=== PATIENT | female | born 2000 | race Caucasian/White ===

== ENCOUNTER 2024-01-30 08:59 | Inpatient (IN) | payer MEDICAID, SELFPAY ==
[2024-01-30] VITALS (21 sets, daily range): BP systolic 100–140; BP diastolic 57–88; PULSE 78–102; TEMP 36.7
--- NOTE | 2024-01-30 09:43 | US_ITS ---
[address] [address] Patient Name: CODI CORONADO MRN: [id number] date: 2000 Sex: F Assigned Patient Location: [facility] Current Patient Location: [facility] Accession/Order Number: [id number] Exam Date: 01/30/2024 09:50 Report Date: 01/30/2024 10:12 At the request of: EDA MCDONALD Procedure: US OB limited EXAM: US OB limited HISTORY: unstable lie ; confirm position COMPARISON: None. TECHNIQUE: Transabdominal ultrasound. FINDINGS: PRESENTATION: Cephalic with longitudinal lie HEART RATE: 138 bpm Gestational age: 39 weeks 1 day JAKE: 02/05/2024: US/US OB limited IMPRESSION: 1. Single live intrauterine . 2. Cephalic presentation with longitudinal lie. Electronically authenticated by: ELMER BANKS Date: 01/30/2024 10:12
[2024-01-30 10:21] LABS: Basophils Percent Auto 0.5 % (0.2-2.0); Eosinophils Absolute Auto 0.2 10^3/uL (0.0-0.7); Eosinophils Percent Auto 2.8 % (0.9-7.0); Hematocrit 28.2 % (36.0-48.0); Hemoglobin 8.8 g/dL (12.0-16.0); Immature Granulocytes Pct Auto 1.2 % (0.0-0.5); Lymphocytes Absolute Auto 1.7 10^3/uL (1.2-3.8); Lymphocytes Percent Auto 20.1 % (20.5-60.0); Mean Corpuscular HGB Conc 31.2 g/dL (29.9-35.2); Mean Corpuscular Hemoglobin 22.9 pg (26.7-34.0); Mean Corpuscular Volume 73.2 fL (81.0-99.0); Mean Platelet Volume 9.6 fL (9.5-13.5); Monocytes Absolute Auto 0.9 10^3/uL (0.3-0.8); Monocytes Percent Auto 10.5 % (1.7-12.0); Neutrophils Absolute Auto 5.5 10^3/uL (1.4-6.5); Neutrophils Percent Auto 64.9 % (43.0-75.0); Platelet Count 282 10^3/uL (150-450); Red Blood Count 3.85 10^6/uL (4.20-5.40); Red Cell Distribution Width 16.4 % (11.0-15.0); White Blood Count 8.5 10^3/uL (4.0-11.0)
[2024-01-30 10:24] LABS: Bilirubin Urine NEGATIVE (NEGATIVE); Blood Urine NEGATIVE (NEGATIVE); Clarity Urine CLEAR (CLEAR); Color Urine LT. YELLOW (YELLOW); Glucose Urine UA NEGATIVE (NEGATIVE); Ketones Urine NEGATIVE (NEGATIVE); Leukocyte Esterase Urine SMALL (NEGATIVE); Nitrite Urine NEGATIVE (NEGATIVE); Protein Urine NEGATIVE (NEG/TRACE); Urobilinogen Urine 0.2 EU/dL (0.2-1.0)
[2024-01-30 10:31] LABS: Amphetamine Screen Urine NEGATIVE (NEGATIVE); Barbiturates Screen Urine NEGATIVE (NEGATIVE); Benzodiazepines Screen Urine NEGATIVE (NEGATIVE); Buprenorphine Screen Urine NEGATIVE (NEGATIVE); Cannabinoid Screen Urine NEGATIVE (NEGATIVE); Cocaine Screen Urine NEGATIVE (NEGATIVE); Methadone Screen Urine NEGATIVE (NEGATIVE); Methamphetamines Screen Urine NEGATIVE (NEGATIVE); Opiate Screen Urine NEGATIVE (NEGATIVE); Oxycodone Screen Urine NEGATIVE (NEGATIVE); Phencyclidine Screen Urine NEGATIVE (NEGATIVE); Tricyclic Antidepressant Urine NEGATIVE (NEGATIVE)
[2024-01-30 10:34] LABS: Bacteria Urine SMALL #/HPF (NONE SEEN); Mucus Urine NONE SEEN (NONE SEEN); Squamous Epithelial Cell Urine MANY #/LPF (NONE/RARE)
[2024-01-30 10:35] LABS: Cast Seen? NONE SEEN #/LPF (NONE SEEN); Crystals Seen? None Seen #/HPF (None Seen); Transitional Epi Cells Urine RARE #/LPF (NONE SEEN)
[2024-01-30 10:36] LABS: Urine Culture Indicated YES
--- NOTE | 2024-01-30 11:29 | P.OBHP_ITS ---
OB - H&P: HPI History of Present Illness Chief complaint: : 2 Para: 1 Gestational age based on last menstrual period: 39.2 History of Present Dating criteria: LMP confirmed by 1st trimester US care: good care Ultrasounds: normal mid trimester US complications comment: dizziness, passing out, weight loss, MFM and cardiology Medical complications OB: none Labs Blood type: O (+) positive Rubella: nonimmune RPR/VDLR: nonreactive GBS status: negative HBsAG: negative Review of Systems ROS Status of ROS: 10 or more systems reviewed and unremarkable except as noted in history and below Exam Constitutional Vital Signs, click to edit/add: Last Vital Signs Pulse 84 01/30/24 11:07 BP 114/66 01/30/24 11:07 Documenting provider has reviewed patient's vital signs: yes Common normals: no apparent distress Exam limitations: altered mental status General appearance: cooperative Orientation/consciousness: Yes awake, Yes oriented to person, Yes oriented to place and Yes oriented to time HENMT Head and scalp: normal to inspection Face and sinus: normal facial exam Nose: external nose normal Eye Common normals: EOMs intact bilaterally General eye: normal appearance of both eyes Neck & C-Spine Common normals: full ROM General: normal visual inspection Lymph Lymphatic: no lymphadenopathy noted Chest Common normals: inspection of chest normal Respiratory Common normals: normal respiratory effort Effort & inspection: able to speak in complete sentences Cardio Common normals: regular rate and regular rhythm Rate: regular rate GI Common normals: Normal to inspection, nondistended, normoactive bowel sounds present Common normals: external appearance normal Extremity Common normals: normal to inspection and full ROM Neuro Common normals: oriented x3 Sensorium/orientation: awake, alert, oriented to person, oriented to place and oriented to time Psych Common normals: mental status grossly normal and thought process normal Attitude: calm Speech: normal speech Thought process: normal thought process Results Labs Labs: Short CBC 01/30/24 Range/Units 09:30 WBC 8.5 (4.0-11.0) 10^3/uL Hgb 8.8 L (12.0-16.0) g/dL Hct 28.2 L (36.0-48.0) % Plt Count 282 (150-450) 10^3/uL Urine 01/30/24 Range/Units 09:15 Urine Color Lt. yellow (YELLOW) Urine Clarity Clear (CLEAR) Urine pH 7.0 (5.0-9.0) Ur Specific [place] 1.010 (1.005-1.025) Urine Protein Negative (NEG/TRACE) mg/dL Urine Glucose (UA) Negative (NEGATIVE) mg/dL OB - A/P Assessment and Plan (1) Term : Plan term
[2024-01-30] MEDS: LACTATED RINGER'S SOLUTION 1,000 ML 1000 ML IV (12:24)
[2024-01-30] MEDS: OXYTOCIN/0.9 % SODIUM CHLORIDE 10 UNITS/500 ML PLAST..BAG 6 UNIT IV (12:24)
--- NOTE | 2024-01-30 17:06 | P.OBPN_ITS ---
Pain Control Pain control: tolerating well Pelvic Exam Comments: external os 1.5 internal os closed, vertex by bedside hand held US, soft, 50 percent, -2 Contractions Monitor mode: External Contraction frequency: 2 Contraction duration: 1 (on 18 miu of pitocin, contractions strong every two to three min) Contraction pattern: Regular Contraction phase: Benny (uterus hard) Contraction intensity: Strong Infant station: -2 Amniotic membrane status: Intact status: Category I Assessment and Plan Pitocin rate (mU/min): 18 Assessment: induction ongoing Plan: continuous present management Comments: informed nurse cleaner laboratory equipment Shaye of status. she decided to stop pitocin. will feed dinner, once contractions stop, will place cervidil. explained to patient. all questions answered. stated agreement and understanding.
[2024-01-30] MEDS: DINOPROSTONE 10 MG VAG INSERT.ER VAGINAL (18:30)
[2024-01-31] VITALS (92 sets, daily range): BP systolic 95–136; BP diastolic 52–79; PULSE 72–102; TEMP 36.4–37.1
--- NOTE | 2024-01-31 06:25 | P.OBPN_ITS ---
Pain Control Pain control: tolerating well Pelvic Exam Dilation (cm): 3 Effacement (%): 50 Contractions Monitor mode: External Contraction frequency: 0 Contraction pattern: Absent station: -1 Amniotic membrane status: Intact status: Category I Comments: head vertex, applied to cervix, cervidil now removed, heart remains CAT I, will let patient clean up, walk around if desired, have breakfast before starting pitocin. per nurse teleprinter installer, instructed not to AROM at this time Assessment and Plan Pitocin rate (mU/min): 0 Assessment: other (will be starting low dose pitocin after patient has breakfast and gets cleaned up) Plan: begin patient augmentation
--- NOTE | 2024-01-31 11:13 | PM.EN ---
Event Note Event Note: to unit for assessment. Patient is sleeping quietly with easy respirations.
[2024-01-31] MEDS: OXYTOCIN/0.9 % SODIUM CHLORIDE 10 UNITS/500 ML PLAST..BAG 6 UNIT IV (13:10)
[2024-01-31] MEDS: LACTATED RINGER'S SOLUTION 1,000 ML 999 ML IV (13:11)
[2024-01-31] MEDS: ROPIVACAINE HCL/PF 400 MG/200 ML PREMIX 6 MG EPIDURAL (13:27)
[2024-01-31] MEDS: LACTATED RINGER'S SOLUTION 1,000 ML 125 ML IV ×2 (16:01→23:17)
[2024-02-01] VITALS (40 sets, daily range): BP systolic 97–143; BP diastolic 55–86; PULSE 69–106; TEMP 36.2–36.9; O2SAT 98–100
--- NOTE | 2024-02-01 01:28 | PM.EN ---
Event Note Event Note: assessment obtained. patient has increased anterior cervical edema, despite position changes. Maternal exhaustion, cervical exam is unchanged for the past 4 hours. 8/-2 with caput. Patient has had pain the last 2-3 hours and anesthesia has redosed twice. No pain relief, maternal exhaustion and failure to descend noted. After discussion with patient she is in agreement for a primary low transverse section at this time. Baby was in footling breech presentation 01-29-24 and then converted to cephalic presentation on 01-30-24 and induction was began. Category B section called and Dr Marks notified. Surgical team called in. Consent obtained.
[2024-02-01] MEDS: METOCLOPRAMIDE HCL 10 MG/2 ML VIAL IVP (01:35)
[2024-02-01] MEDS: CEFAZOLIN SODIUM/DEXTROSE,ISO 2 GM/50 ML PIGGYBACK IV (01:35)
[2024-02-01] MEDS: FAMOTIDINE/PF 20 MG/2 ML VIAL IV (01:35)
[2024-02-01] MEDS: CITRIC ACID/SODIUM CITRATE 30 ML SOLUTION ORACIT SHOHL'S SOLN PO (01:35)
[2024-02-01] MEDS: LACTATED RINGER'S SOLUTION 1,000 ML 50 ML IV (02:24)
--- NOTE | 2024-02-01 02:57 | PM.EN ---
Event Note Event Note: !st Assist Note: I first assisted Dr Marks as directed. I independently closed the skin incision with 3-0 vicryl without difficulty. Hemostasis noted at the completion of the case. Patient tolerated the procedure well.
[2024-02-01] MEDS: BUPIVACAINE LIPOSOME/PF 266 MG/13.3 ML VIAL INJ (03:00)
[2024-02-01] MEDS: OXYTOCIN/0.9 % SODIUM CHLORIDE 20 UNITS/1,000 ML PLAST..BAG 125 UNIT IV (03:30)
[2024-02-01] MEDS: LACTATED RINGER'S SOLUTION 1,000 ML 125 ML IV (08:29)
[2024-02-01] MEDS: CEFAZOLIN SODIUM/DEXTROSE,ISO 1 GM/50 ML PREMIX IV (08:30)
[2024-02-01] MEDS: KETOROLAC TROMETHAMINE 30 MG/ML VIAL IVP ×3 (08:30→20:12)
[2024-02-01] MEDS: ONDANSETRON PF 4 MG/2 ML VIAL IV (08:45)
[2024-02-01] MEDS: NALOXONE HCL 0.4 MG/ML VIAL IV ×2 (09:25→18:18)
--- NOTE | 2024-02-01 10:09 | P.OBPRC_ITS ---
Procedure Pre-op/Post-op diagnoses: Pre-Op/Post-Op Diagnoses Operation Date: 02/01/24 02:00 <No data on this case meets the specified criteria> Procedure: Procedures Operation Date: 02/01/24 02:00 Actual Procedure Side Surgeon p Not Applicable Andressa Marks MD Certified Orthotist/Pedorthist: EDA MCDONALD Estimated blood loss (mL): 300 Disposition: floor Anesthesia type: Epidural Complications: NONE Narrative: WAS CALLED BY AASHISH MCDONALD NURSE SHOCK ABSORPTION FLOOR LAYER THAT SHE WANTED TO CALL [facility] FOR FTD FOR OVER 4 HOURS. HEART RATE REMAINED REASSURRING HOWEVER MOM WAS NOT COPING WELL WITH THE PAIN OR LACK OF PROGRESS OF LABOR. THE OR TEAM WAS CALLED IN. THE INDICATION FOR CS WAS EXPLAINED TO PATIENT AND FAMILY BY AASHISH MCDONALD AND CONSENT SIGNED. THE PATIENT WAS BROUGHT TO THE OPERATING ROOM AND POSITIONED ON THE OPERATING TABLE IN A SUPINE POSITION WITH A WEDGE UNDER THE RIGHT FLANK. ANESTHETIC MONITORS WERE APPLIED. THE EPIDURAL HAD BEEN DOSED PREVIOUSLY FOR SURGERY. FHT WERE ASSESS AND WNL. THE PATIENT WAS PREPPED AND DRAPED. TIME OUT WAS PERFORMED. THE ANESTHETIC LEVEL WAS ASSESSED AND ADEQUATE. A PFANNENSTIEL SKIN INCISION WAS MADE TWO FINGER BRETHS ABOVE THE PUBIC SYMPHYSIS BONE. THIS INCISION WAS CARRIED DONE TO THE LEVEL OF THE FASCIA. THE FASCIA WAS NICKED IN THE MIDLINE AND THIS INCISION WAS EXTENDED LATERALLY TO THE FULL EXTENT OF THE SKIN INCISION. THE SUPERIOR AND INFERIOR BORDERS OF THE RECTUS ABDOMINUS MUSCLE WERE DISSECTED FROM THE FASCIA USING CAUTERY ON CUTTING MODE AND BLUNT DISSECTION. THE BLADDER FLAP WAS DEVELLPED AND THE BLADDER BLADE WAS POSITIONED. THE JONAS WAS INCISED TWO INCHES AND THIS OPENNING WAS MANUALLY WIDENED. THE BABY WAS FACE UP. THE RIGHT HAND OF THE SURGEON WAS PLACED AROUND THE VERTEX AND WITH GENTLE FUNDLE PRESSURE THE HEAD WAS DELIVERED WITHOUT NUCHAL CORD. THE SHOULDERS AND TORSO WERE THEN DELIVERED. THE INFANT BOY HAD GOOD TONE AND COLOR BUT DID NOT CRY. THE UMBILICAL CORD WAS CLAMPED AND CUT AND THE INFANT WAS HANDED TO THE NPR TEAM FOR ASSESSMENT AND CARE. CORD BLOOD WAS OBTAINED. THE PLACENTA WAS MANUALLY REMOVED INTACT AND NOT SENT TO PATHOLOGY. THE UTERUS WAS EXTERIORIZED AND THE HYSTEROTOMY WAS REPAIRED IN A SINGLE LAYER WITH A CONTINUOUS LOCKING STITCH. EXCELLENT HEMOSTASIS WAS ACHIEVED. BLOOD WAS EVACUATED FROM THE POSTERIOR AND ANTERIOR CULDESAC AND LATERAL GUTTERS. THE UTERUS WAS RETURNED TO ITS NORMAL ANATOMICAL POSITION AND RECHECKED. HEMOSTASIS WAS EXCELLENT. THE FIRST SPONGE INSTRUMENT AND NEEDLE COUNT WAS CORRECT. THE FASCIA WAS CLOSED WITH O VICRYL WITH A RUNNING STITCH. THE SUBCUTANEOUS FAT DID NOT REQUIRE CLOSURE MINIMAL. THE SKIN WAS CLOSED WITH A SUBCUTICULAR STITCH USING 4-0 VICRYL. THE FINAL COUNT WAS CORRECT. THE INCISION WAS COVERED WITH A STERILE DRESSING. THE PATIENT WAS TRANSPORTED BACK TO HER ROOM ON MATERNITY IN HEMODYNAMICALLY STABLE CONDITION.
[2024-02-01] MEDS: ACETAMINOPHEN 500 MG TABLET 1000 MG PO ×2 (12:01→20:00)
[2024-02-02] VITALS (52 sets, daily range): BP systolic 98–130; BP diastolic 61–80; PULSE 85–104; TEMP 36.2–37.1; O2SAT 96–100
[2024-02-02] MEDS: IBUPROFEN 400 MG TABLET 800 MG PO ×3 (06:07→19:47)
[2024-02-02] MEDS: ACETAMINOPHEN 500 MG TABLET 1000 MG PO ×3 (06:07→23:20)
[2024-02-02 06:10] LABS: Basophils Percent Auto 0.2 % (0.2-2.0); Eosinophils Absolute Auto 0.2 10^3/uL (0.0-0.7); Eosinophils Percent Auto 1.2 % (0.9-7.0); Immature Granulocytes Abs Auto 0.16 10^3/uL (0.00-0.03); Immature Granulocytes Pct Auto 1.3 % (0.0-0.5); Lymphocytes Percent Auto 15.3 % (20.5-60.0); Mean Corpuscular HGB Conc 31.4 g/dL (29.9-35.2); Mean Corpuscular Hemoglobin 23.4 pg (26.7-34.0); Mean Corpuscular Volume 74.5 fL (81.0-99.0); Mean Platelet Volume 9.5 fL (9.5-13.5); Monocytes Absolute Auto 1.2 10^3/uL (0.3-0.8); Monocytes Percent Auto 9.6 % (1.7-12.0); Neutrophils Absolute Auto 9.2 10^3/uL (1.4-6.5); Neutrophils Percent Auto 72.4 % (43.0-75.0); Platelet Count 203 10^3/uL (150-450); Red Blood Count 2.35 10^6/uL (4.20-5.40); Red Cell Distribution Width 16.8 % (11.0-15.0); White Blood Count 12.7 10^3/uL (4.0-11.0)
[2024-02-02] MEDS: ENOXAPARIN SODIUM 40 MG/0.4 ML SYRINGE SUBQ (06:34)
[2024-02-02 06:47] LABS: Hematocrit 17.5 % (36.0-48.0); Hemoglobin 5.5 g/dL (12.0-16.0)
[2024-02-02] MEDS: 0.9 % SODIUM CHLORIDE 1,000 ML 125 ML IV (07:50)
[2024-02-02] MEDS: DOCUSATE SODIUM 100 MG CAPSULE PO ×2 (08:46→22:07)
--- NOTE | 2024-02-02 10:46 | P.OBPN_ITS ---
OB - PN: Subj Subjective Patient comments: no complaints, pain well controlled, tolerating diet and flatus present [place] infant status: doing well [place] feeding status: exclusively Exam Constitutional Vital Signs, click to edit/add: Last Vital Signs Temp 97.5 F L 02/02/24 10:44 Pulse 88 02/02/24 10:44 Resp 16 02/02/24 10:44 BP 109/65 02/02/24 10:44 Pulse Ox 100 02/02/24 10:44 O2 Del Method Room Air 02/02/24 10:44 Documenting provider has reviewed patient's vital signs: yes Common normals: no apparent distress, oriented x3, healthy appearing and alert HENMT Common normals: normocephalic and head/scalp atraumatic Eye Common normals: PERRL Pupil: accommodation reflex normal Neck & C-Spine Common normals: full ROM and supple Respiratory Common normals: normal respiratory effort Auscultation: clear to auscultation bilaterally Cardio Common normals: regular rate and regular rhythm GI Common normals: Normal to inspection, nondistended, normoactive bowel sounds present and soft to palpation Common normals: no CVA tenderness Back & Pelvis Common normals: no thoracic nor lumbar tenderness Extremity Common normals: normal to inspection, full ROM and no calf tenderness Neuro Common normals: oriented x3, CN's II-XII intact bilaterally, moves all extremities, no focal motor deficits and no sensory deficits noted Motor exam: strength 5/5 throughout Psych Common normals: mental status grossly normal, thought process normal, cooperative, affect normal and speech normal Results Labs Labs: Short CBC 02/02/24 Range/Units 05:57 WBC 12.7 H (4.0-11.0) 10^3/uL Hgb 5.5 L* D (12.0-16.0) g/dL Hct 17.5 L* (36.0-48.0) % Plt Count 203 (150-450) 10^3/uL Urinary Catheter Management Urinary Catheter Management Urethral: Cath placed during this visit: yes, but has since been removed by the nurse Insertion date: 02/01/24 Insertion time: 01:30 Removal date: 02/01/24 Removal time: 14:15 OB - PN: A/P Assessment and Plan (1) Blood loss anemia: Assessment and Plan: RECEIVING TWO UNITS OF PRBC'S. NOT SYNCOPAL. VSS STABLE WITH HEMOGLOBIN OF 5 MG % (2) Delivery by emergency : Assessment and Plan: CLINICAL EXAM NONFOCAL, ROUTINE POST CS CARE Plan - day: 1 Plan: routine postop care Time Spent with Patient Time: Total time spent is greater than 50% in coordination of care (as documented) at patient's floor/unit and/or counseling patient: Total time spent with greater than 50% in coordination of care (as documented) at patient's floor/unit and/or counseling patient: less than 15 minutes
[2024-02-02 16:19] LABS: Basophils Percent Auto 0.3 % (0.2-2.0); Eosinophils Absolute Auto 0.2 10^3/uL (0.0-0.7); Eosinophils Percent Auto 1.3 % (0.9-7.0); Hematocrit 26.4 % (36.0-48.0); Hemoglobin 8.6 g/dL (12.0-16.0); Immature Granulocytes Abs Auto 0.37 10^3/uL (0.00-0.03); Immature Granulocytes Pct Auto 2.3 % (0.0-0.5); Lymphocytes Absolute Auto 2.1 10^3/uL (1.2-3.8); Lymphocytes Percent Auto 13.2 % (20.5-60.0); Mean Corpuscular HGB Conc 32.6 g/dL (29.9-35.2); Mean Corpuscular Hemoglobin 25.1 pg (26.7-34.0); Mean Platelet Volume 9.8 fL (9.5-13.5); Monocytes Absolute Auto 1.4 10^3/uL (0.3-0.8); Monocytes Percent Auto 8.6 % (1.7-12.0); Neutrophils Absolute Auto 11.7 10^3/uL (1.4-6.5); Neutrophils Percent Auto 74.3 % (43.0-75.0); Platelet Count 238 10^3/uL (150-450); Red Blood Count 3.43 10^6/uL (4.20-5.40); Red Cell Distribution Width 17.8 % (11.0-15.0); White Blood Count 15.8 10^3/uL (4.0-11.0)
[2024-02-03] MEDS: IBUPROFEN 400 MG TABLET 800 MG PO ×2 (03:04→10:05)
[2024-02-03] MEDS: ENOXAPARIN SODIUM 40 MG/0.4 ML SYRINGE SUBQ (06:42)
[2024-02-03 09:49] VITALS: BP 122/75
[2024-02-03 09:50] VITALS: TEMP 36.9
[2024-02-03] MEDS: DOCUSATE SODIUM 100 MG CAPSULE PO (10:05)
--- NOTE | 2024-02-03 12:27 | P.DS_ITS ---
DS: Providers Provider Date of admission: 01/30/24 08:59 Primary care physician: CHRISTINE BENSON Admitting clinician: EDA MCDONALD Consults: 01/30/24 Consult to Anesthesiology Routine Consulting Provider: Julio Mcdonald II Reason for consultation: labor pain Has provider been notified: Yes 02/01/24 01:36 Consult to Anesthesiology Routine Consulting Provider: Julio Mcdonald II Reason for consultation: section Has provider been notified: Yes 02/02/24 Consult to Investment Professional Routine Has provider been notified: Yes Reason for consult:: Drug Abuse Other reason:: THC positive in early , quit and was negative on admission. Attending physician on discharge: Andressa Marks DS: Diagnosis Discharge Diagnosis (1) Blood loss anemia: Assessment and plan: RECEIVED 2 PRBC , GOOD RESPONSE, WILL SEND HOME ON IRON PO (2) Delivery by emergency : Assessment and plan: INCISION DRY AND INTACT, CLINICAL EXAM NONFOCAL Plan DISCHARGE HOME OB - DS: Summary Hospital Course Hospital Course: UNCOMPLICATED Time spent discussing smoking cessation with patient: 3 to 10 minutes Peripartum Data - Procedures: Procedures Operation Date: 02/01/24 02:00 Actual Procedure Side Surgeon p Not Applicable Andressa Marks MD Peripartum Data - Vaginal Delivery Procedures: Procedures Operation Date: 02/01/24 02:00 Actual Procedure Side Surgeon p Not Applicable Andressa Marks MD Complications complications: none Delivery method: section Gender: male Discharge plan: home Status at Discharge Cognitive/behavioral status at discharge: WNL Functional status at discharge: independent ambulation Overall status at discharge: patient is progressing back to baseline Time Spent with Patient Time attestation: Total time spent providing and/or coordinating discharge services: Time spent: less than 30 minutes Specific discharge activities: NO DRIVING 4 WEEKS, NO SEX 6 WEEKS, SPORTS BRA 24/10 IF STOPS BREAST FEEDING, MAY SHOWER, NO TUB 4 WEEKS, WALKING ONLY EXERCISE 6 WEEKS Exam Constitutional Vital Signs, click to edit/add: Last Vital Signs Temp 98.4 F 02/03/24 09:50 Pulse 99 H 02/02/24 23:12 Resp 16 02/03/24 09:50 BP 122/75 02/03/24 09:49 Pulse Ox 99 02/02/24 11:10 O2 Del Method Room Air 02/03/24 09:55 Documenting provider has reviewed patient's vital signs: yes Common normals: no apparent distress, oriented x3, no limitations, healthy appearing, alert and well nourished HENMT Common normals: normocephalic and head/scalp atraumatic Eye Common normals: PERRL Pupil: accommodation reflex normal Neck & C-Spine Common normals: full ROM and supple Respiratory Common normals: normal respiratory effort Auscultation: clear to auscultation bilaterally Cardio Common normals: regular rate and regular rhythm GI Common normals: Normal to inspection, nondistended, normoactive bowel sounds present and soft to palpation Common normals: no CVA tenderness Back & Pelvis Common normals: no thoracic nor lumbar tenderness Extremity Common normals: normal to inspection, full ROM and no calf tenderness Neuro Common normals: CN's II-XII intact bilaterally, moves all extremities, no focal motor deficits and no sensory deficits noted Motor exam: strength 5/5 throughout Psych Common normals: mental status grossly normal, thought process normal, cooperative, affect normal, speech normal and activity/motor behavior normal DS: Data Data Completed and Pending Labs on day of discharge: Labs from last 24 hours 02/02/24 01/30/24 16:07 09:30 WBC 15.8 H RBC 3.43 L Hgb 8.6 L Hct 26.4 L MCV 77.0 L MCH 25.1 L MCHC 32.6 RDW 17.8 H Plt Count 238 MPV 9.8 Neut % (Auto) 74.3 Lymph % (Auto) 13.2 L Andrews % (Auto) 8.6 Eos % (Auto) 1.3 Baso % (Auto) 0.3 Neut # (Auto) 11.7 H Lymph # (Auto) 2.1 Andrews # (Auto) 1.4 H Eos # (Auto) 0.2 Baso # (Auto) 0.0 Abs Immat Gran (auto) 0.37 H Imm/Tot Granulo (auto) 2.3 H Crossmatch See Detail Discharge Plan Discharge Disposition: Home, Self-Care Condition: Good Assessment: CONDITION GOOD, AFEBRILE, VSS, APPROPRIATE FOR DISCHARGE Health Concerns: NONE Plan of Treatment: DISCHARGE Activity: increase activity as tolerated Activity Detail: STATED PREVIOUSLY Diet: regular diet Print Language: [place] Patient Instructions: (DC) Forms: Portal Instructions Follow Up Appointments: INCISION CHECK WITH AASHISH MCDONALD IN ONE WEEK FROM DISCHARGE Discharge location: HOME
== END 2024-02-03 14:10 | disposition home or self-care (01) | DRG 540 ==
PROVIDERS: Obstetrics & Gynecology; Admitting Provider Midwife; PCP Nurse Practitioner Family; Visit Provider Midwife
PROC: 10D00Z1 Extraction of Products of Conception, Low, Open Approach (ICD-10-PCS; CPT 59514; principal; 2024-02-01 02:00)
DX: O62.2 Other uterine inertia (principal); O75.81 Maternal exhaustion complicating labor and delivery; O90.81 Anemia of the puerperium; D62 Acute posthemorrhagic anemia; Z37.0 Single live birth; Z3A.39 39 weeks gestation of pregnancy
CPT/HCPCS: 36415; 36430; 51702; 59050; 64488; 76815; 80307; 81001; 85025; 86850; 86900; 86901; 87086; 94667; J0131; J0665; J0690; J1100; J1230; J1650; J1885; J2274; J2371; J2405; J2590; J2765; J2795; J3010; P9016